=== PATIENT | male | born 1990 | race Asian ===

== ENCOUNTER 2024-05-15 11:51 | Emergency (ER) | payer MEDICAID ==
[~2024-05-15] VITALS: Ht 185.4 cm; Wt 114.0 kg
[2024-05-15 11:55] VITALS: BP 135/87; PULSE 75; RESP 16; TEMP 98.1; O2SAT 99
== END 2024-05-15 12:50 | disposition left against medical advice (07) ==
LOC: ER 11:51
DX: F41.9 Anxiety disorder, unspecified (principal); R00.2 Palpitations; Z53.21 Procedure and treatment not carried out due to patient leaving prior to being seen by health care provider